=== PATIENT | male | born 1995 | race Caucasian/White ===

== ENCOUNTER → 2017-07-25 | Outpatient (CLI) | payer OTHER | LOC: BMCIMAGING 17:00 | PROVIDERS: ATTEND Family Medicine | DX: M25.532 Pain in left wrist (principal); Y93.55 Activity, bike riding ==

== ENCOUNTER 2017-07-29 18:05 | Emergency (ER) | payer OTHER ==
[2017-07-29 18:44] VITALS: BP 147/84; RESP 18
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
[2017-07-29 19:36] VITALS: PULSE 74; TEMP 98.1; O2SAT 98
== END 2017-07-29 19:41 | disposition home or self-care (01) ==
PROC: 0HQ1XZZ Repair Face Skin, External Approach (ICD-10-PCS; principal; 2017-07-29)
DX: S06.0X0A Concussion without loss of consciousness, initial encounter (principal); S01.112A Laceration without foreign body of left eyelid and periocular area, initial encounter; F17.200 Nicotine dependence, unspecified, uncomplicated; V18.0XXA Pedal cycle driver injured in noncollision transport accident in nontraffic accident, initial encounter; Y92.481 Parking lot as the place of occurrence of the external cause; Y99.8 Other external cause status; Y93.55 Activity, bike riding